=== PATIENT | male | born 1950 | race Caucasian/White ===

== ENCOUNTER → 2017-09-24 | Outpatient (CLI) | payer MEDICARE ==
[~2017-09-24] MED LIST: 1-ME1LIQ PO; AMLO10TA2 PO; ASPI81TA23 PO; HYDR-2768 PO; HYDR25TA5 PO; LISI-360 PO; LISI30TA4 PO; LORTA5 PO; PRAV40 PO; PRAV40TA2 PO; SPIRCAP INH; TAMS0.4C4 PO; UMEC1INH INH
[2017-09-24 10:20] LABS: AUTOMATED NEUTROPHIL # 4.1 TH/MM3 (1.8-7.7); BASOPHIL # 0.1 TH/MM3 (0-0.2); BASOPHIL % 0.9 % (0.0-2.0); EOSINOPHIL # 0.3 TH/MM3 (0-0.4); EOSINOPHIL % 4.3 % (0.0-4.0); HEMATOCRIT 45.3 % (39.0-51.0); HEMOGLOBIN 15.6 GM/DL (13.0-17.0); LYMPHOCYTE # 1.9 TH/MM3 (1.0-4.8); MEAN CELL VOLUME 87.9 FL (80.0-100.0); MEAN CORPUSCULAR HEMOGLOBIN 30.2 PG (27.0-34.0); MEAN CORPUSCULAR HGB CONC 34.3 % (32.0-36.0); MEAN PLATELET VOLUME 8.8 FL (7.0-11.0); MONOCYTE # 0.8 TH/MM3 (0-0.9); NEUT % 57.8 % (16.0-70.0); PLATELET COUNT 195 TH/MM3 (150-450); RED BLOOD COUNT 5.15 MIL/MM3 (4.50-5.90); RED CELL DISTRIBUTION WIDTH 13.1 % (11.6-17.2); WHITE BLOOD COUNT 7.2 TH/MM3 (4.0-11.0)
[2017-09-24 10:29] LABS: PROTHROMBIN TIME - PATIENT 9.9 SEC (9.8-11.6)
[2017-09-24 10:50] LABS: ALBUMIN 4.1 GM/DL (3.4-5.0); ALT (GPT) 34 U/L (12-78); AST (GOT) 17 U/L (15-37); BICARBONATE 30.4 MEQ/L (21.0-32.0); BLOOD UREA NITROGEN 16 MG/DL (7-18); CALCIUM 9.5 MG/DL (8.5-10.1); CHLORIDE 103 MEQ/L (98-107); CREATININE 0.98 MG/DL (0.60-1.30); GLOMERULAR FILTRATION RATE 76 ML/MIN (>89); GLUCOSE,FASTING 118 MG/DL (74-99); SODIUM (NA) 142 MEQ/L (136-145)
[2017-09-24 10:53] LABS: ALKALINE PHOSPHATASE 66 U/L (45-117); TOTAL BILIRUBIN ADULT 0.8 MG/DL (0.2-1.0); TOTAL PROTEIN 7.4 GM/DL (6.4-8.2)
[2017-09-24 11:15] LABS: BILIRUBIN, URINE NEG (NEG); BLOOD, URINE NEG (NEG); GLUCOSE,URINE NEG (NEG); KETONE, URINE NEG (NEG); NITRITE,URINE NEG (NEG); SQUAMOUS EPITHELIAL CELL URINE <1 /hpf (0-5); URINE COLOR YELLOW (YELLW/STRAW); URINE LEUKOCYTE ESTERASE NEG (NEG)
--- NOTE | 2017-09-24 12:14 | RADRPT ---
EXAM DATE/TIME: 09/24/2017 10:37 [place] COMPARISON: No previous studies available for comparison. INDICATIONS : Evaluate for pneumonia, pneumothorax, or communicable disease. Pre op for transverse colecotomy. MEDICAL HISTORY : Hypertension. Chronic obstructive pulmonary disease. SURGICAL HISTORY : None. ENCOUNTER: Initial ACUITY: 1 day PAIN SCORE: 0/10 LOCATION: Bilateral chest FINDINGS: PA and lateral views of the chest demonstrate the lungs to be symmetrically aerated without evidence of mass, infiltrate or effusion. The cardiomediastinal contours are unremarkable. Osseous structure s are intact. CONCLUSION: No acute disease. Curry Liang MD FACR on September 24, 2017 at 12:11 Board Certified Radiologist. This report was verified electronically.
--- NOTE | 2017-09-24 20:02 | EKG ---
Date Performed: 09/24/2017 Time Performed: 10:17:23 PTAGE: 67 years EKG: Sinus rhythm MODERATE INTRAVENTRICULAR CONDUCTION DELAY BORDERLINE ECG NO PREVIOUS TRACING DOCTOR: Uli Vilchis Interpretating Date/Time 09/24/2017 20:01:54
== END ==
LOC: CPRE 09:26
PROVIDERS: ATTEND Colon & Rectal Surgery
DX: Z01.810 Encounter for preprocedural cardiovascular examination (principal); Z01.812 Encounter for preprocedural laboratory examination; Z01.811 Encounter for preprocedural respiratory examination; R94.31 Abnormal electrocardiogram [ECG] [EKG]; D12.3 Benign neoplasm of transverse colon; Z79.01 Long term (current) use of anticoagulants
CPT/HCPCS: 36415; 71046; 80053; 81001; 82378; 85025; 85610; 85730; 93005

== ENCOUNTER 2017-10-01 10:04 | Inpatient (IN) | payer MEDICARE ==
[~2017-10-01] VITALS: Ht 188 cm; Wt 106.5 kg
[~2017-10-01 10:04] MED LIST changes: -1-ME1LIQ PO; -HYDR-2768 PO; -LISI-360 PO; -LORTA5 PO; -PRAV40 PO; -SPIRCAP INH
[2017-10-01] MEDS ORDERED: BUPIVACAINE HCL PF 0.5% 30 ML VIAL ONE ×5 (10:50→12:32)
[2017-10-01] MEDS ORDERED: LIDOCAINE 1%/EPINEPHrine 1:100,000 SOLN 30 ML VIAL ONE (10:50)
[2017-10-01] MEDS ORDERED: INSULIN HUMAN REGULAR 1,000 UNITS/10 ML VIAL SQ PRN (11:00)
[2017-10-01] MEDS ORDERED: SODIUM CHLORID 0.9% 500 ML IV PRN (11:00)
[2017-10-01] MEDS ORDERED: CHLORHEXIDINE GLUCONATE 2 % 1 PACK (2 CLOTHS) TOPICAL PRN (11:00)
[2017-10-01] MEDS ORDERED: ceFAZolin 1,000 MG/NS 100 ML IV SCH ×2 (11:00)
[2017-10-01] MEDS ORDERED: DEXT 5%-NACL 0.9% 1000 ML INJ 1,000 ML IV SCH (11:00)
[2017-10-01] MEDS ORDERED: LACTATED RINGER'S 1000 ML IV PRN (11:00)
[2017-10-01] MEDS ORDERED: POVIDONE IODINE 5% (ANTISEPSIS KIT) 4 APPLICATIONS EACH NARE PRN (11:00)
[2017-10-01] MEDS ORDERED: METOPROLOL TARTRATE 25 MG TAB PO PRN (11:00)
[2017-10-01] MEDS ORDERED: ALVIMOPAN 12 MG CAPSULE - On Call PO SCH (11:00)
[2017-10-01] MEDS ORDERED: METRONIDAZOLE 500 MG/100 ML ISONTONIC SOLN IV SCH (11:00)
[2017-10-01] MEDS ORDERED: ZANT150T2 PO (11:15)
--- NOTE | 2017-10-01 11:29 | PD.HP.UP ---
H&P Update Note The Pre-Admit History and Physical Examination regarding the above named patient was reviewed (including, but not limited to, vital signs, heart, lungs, co-morbid conditions), and upon re-examination it is noted that: the patient's condition has not significantly changed since the last examination. Harish Valdez MD Oct 01, 2017 11:29
[2017-10-01] MEDS ORDERED: ACETAMINOPHEN 1000 MG/100 ML 100 ML IV ONE (11:35)
[2017-10-01] MEDS ORDERED: HYDROmorphone HCL PF 2 MG/ML VIAL ONE (11:37)
[2017-10-01] MEDS ORDERED: METR250 PO (11:38)
[2017-10-01] MEDS ORDERED: NORMOSOL R INJ 2,000 ML IV ONE (12:00)
[2017-10-01] MEDS ORDERED: VECURONIUM BROMIDE 20 MG VIAL IV ONE (12:00)
[2017-10-01] MEDS ORDERED: NEOSTIGMINE 5 MG/5 ML SYRINGE IV PUSH ONE (12:00)
[2017-10-01] MEDS ORDERED: LIDOCAINE HCL 1% PF 5 ML SYRINGE OTHER ONE (12:00)
[2017-10-01] MEDS ORDERED: ROCURONIUM INJ 50 MG/5 ML SYRINGE IV PUSH ONE (12:00)
[2017-10-01] MEDS ORDERED: PHENYLEPH/NS 1000 MCG/10 ML SYR IV ONE (12:00)
[2017-10-01] MEDS ORDERED: GLYCOPYRROLATE 1 MG/5 ML SYRINGE IV PUSH ONE (12:00)
[2017-10-01] MEDS ORDERED: DO NOT ADM ANY ANTICOAGULANT DRUGS PRN (14:09)
[2017-10-01] MEDS ORDERED: BENZOCAINE 6 MG/MENTHOL 10 MG LOZENGE BUCCAL PRN (14:15)
[2017-10-01] MEDS ORDERED: ENALAPRILAT 2.5 MG/2 ML VIAL IV PUSH PRN (14:15)
[2017-10-01] MEDS ORDERED: NALOXONE HCL 0.4 MG/ML AMP IV PUSH PRN (14:15)
[2017-10-01] MEDS ORDERED: BUPIVACAINE HCL PF 0.5% 30 ML VIAL NB SCH (14:15)
[2017-10-01] MEDS: PCA - TOTAL MG MORPHINE DELIVERED PER SHIFT SCH (14:15)
[2017-10-01] MEDS ORDERED: ACETAMINOPHEN/HYDROcodone 325 MG/5 MG TAB PO PRN (14:15)
[2017-10-01] MEDS ORDERED: ENALAPRILAT 1.25 MG/ML VIAL IV PUSH PRN (14:15)
[2017-10-01] MEDS ORDERED: POTASSIUM CHLOR 20 MEQ PREMIX 100 ML IV PRN (14:15)
[2017-10-01] MEDS ORDERED: ACETAMINOPHEN 325 MG TAB PO PRN (14:15)
[2017-10-01] MEDS ORDERED: ONDANSETRON HCL 4 MG/2 ML VIAL IV PUSH PRN (14:15)
[2017-10-01] MEDS ORDERED: KETOROLAC TROMETHAMINE 30 MG/ML (IVP) VIAL IVP PRN (14:15)
[2017-10-01] MEDS ORDERED: Post-op Orders (for Pharmacy) XX ONE (14:15)
[2017-10-01] MEDS ORDERED: POTASSIUM CHLOR 40 MEQ PREMIX 100 ML IV PRN (14:15)
[2017-10-01] MEDS ORDERED: MIDAZOLAM HCL 2 MG/2 ML VIAL ONE (14:16)
[2017-10-01] MEDS ORDERED: KETOROLAC TROMETHAMINE 30 MG/ML (IVP) VIAL IV PUSH ONE (14:33)
[2017-10-01] MEDS ORDERED: ONDANSETRON HCL 4 MG/2 ML VIAL IV PUSH ONE (14:33)
[2017-10-01] MEDS ORDERED: PROPOFOL 200 MG/20 ML AMP IV ONE (14:33)
[2017-10-01] MEDS ORDERED: DEXAMETHASONE SOD PHOS 4 MG/ML VIAL IV ONE (14:33)
[2017-10-01] MEDS ORDERED: STERILE WATER FOR INJECTION 20 ML VIAL IV ONE (14:33)
[2017-10-01] MEDS: D5-NS + KCL 20 MEQ INJ 1,000 ML IV SCH ×2 (15:00→22:42)
[2017-10-01] MEDS: MORPHINE SULFATE 30 MG/30 ML PCA IV SCH (15:15)
[2017-10-01] MEDS ORDERED: PILL SPLITTER OTHER PRN (15:15)
[2017-10-01 20:00] VITALS: BP 152/76; PULSE 76; RESP 16; TEMP 97.5; O2SAT 95
[2017-10-01] MEDS: metroNIDAZOLE 500 MG INJ 100 ML IV SCH (22:39)
[2017-10-01] MEDS: PRAVASTATIN SOD 40 MG TAB PO SCH (22:40)
[2017-10-01] MEDS: METOCLOPRAMIDE HCL 10 MG/2 ML VIAL IVS SCH (22:40)
[2017-10-01] MEDS: TAMSULOSIN HCL 0.4 MG CAP PO SCH (22:41)
[2017-10-02] VITALS (17 sets, daily range): BP systolic 115–155; BP diastolic 56–81; PULSE 65–80; RESP 16–18; TEMP 97.5–99.7; O2SAT 90–94
[2017-10-02] MEDS: metroNIDAZOLE 500 MG INJ 100 ML IV SCH ×2 (04:13→12:36)
[2017-10-02] MEDS: D5-NS + KCL 20 MEQ INJ 1,000 ML IV SCH ×3 (04:13→18:38)
[2017-10-02 05:14] LABS: BASOPHIL % 0.2 % (0.0-2.0); EOSINOPHIL % 0.1 % (0.0-4.0); HEMATOCRIT 42.3 % (39.0-51.0); HEMOGLOBIN 14.3 GM/DL (13.0-17.0); LYMPH % 7.4 % (9.0-44.0); MEAN CELL VOLUME 88.3 FL (80.0-100.0); MEAN CORPUSCULAR HEMOGLOBIN 29.9 PG (27.0-34.0); MEAN CORPUSCULAR HGB CONC 33.9 % (32.0-36.0); MEAN PLATELET VOLUME 9.3 FL (7.0-11.0); MONO % 8.4 % (0.0-8.0); MONOCYTE # 1.1 TH/MM3 (0-0.9); NEUT % 83.9 % (16.0-70.0); PLATELET COUNT 181 TH/MM3 (150-450); RED BLOOD COUNT 4.79 MIL/MM3 (4.50-5.90); RED CELL DISTRIBUTION WIDTH 13.3 % (11.6-17.2); WHITE BLOOD COUNT 13.1 TH/MM3 (4.0-11.0)
[2017-10-02 05:32] LABS: BICARBONATE 26.7 MEQ/L (21.0-32.0); CALCIUM 7.9 MG/DL (8.5-10.1); CREATININE 0.87 MG/DL (0.60-1.30)
--- NOTE | 2017-10-02 07:28 | HHI.PR ---
Subjective Remarks C/R Surg POD #1 afebrile, VSS UO good Objective - Vital Signs Date Time Temp Pulse Resp B/P (MAP) Pulse Ox O2 Delivery O2 Flow Rate FiO2 10/02/17 03:00 98.1 66 16 120/56 (77) 93 10/01/17 19:00 Room Air 10/01/17 16:00 2 Result Diagram: 10/02/17 0353 10/02/17 0353 Objective Remarks PE alert Abd - soft, wound dry, min tympany A/P Assessment and Plan Imp: stable post-op OOB decr IVF tx to floor Harish Valdez MD Oct 02, 2017 07:28
[2017-10-02] MEDS: LISINOPRIL 20 MG TAB PO SCH (09:00)
[2017-10-02] MEDS: PANTOPRAZOLE SODIUM 40 MG VIAL IVP SCH (09:00)
[2017-10-02] MEDS: PANTOPRAZOLE SOD 40 MG DELAYED RELEASE TAB PO SCH (09:00)
[2017-10-02] MEDS ORDERED: INCRUSE ELLIPTA INH SCH (09:00)
[2017-10-02] MEDS: METOCLOPRAMIDE HCL 10 MG/2 ML VIAL IVS SCH ×2 (09:01→21:52)
[2017-10-02] MEDS: ALVIMOPAN 12 MG CAPSULE - Post-op dosing PO SCH ×2 (09:01→21:52)
[2017-10-02] MEDS: MORPHINE SULFATE 30 MG/30 ML PCA IV SCH (09:08)
[2017-10-02] MEDS: ACETAMINOPHEN/HYDROcodone 325 MG/5 MG TAB PO PRN ×2 (12:40→21:51)
[2017-10-02] MEDS: PCA - TOTAL MG MORPHINE DELIVERED PER SHIFT SCH ×2 (14:00→21:53)
[2017-10-02] MEDS ORDERED: ALVIMOPAN 12 MG CAPSULE PO SCH (21:00)
[2017-10-02] MEDS: PRAVASTATIN SOD 40 MG TAB PO SCH (21:52)
[2017-10-02] MEDS: TAMSULOSIN HCL 0.4 MG CAP PO SCH (21:53)
[2017-10-03] VITALS: BP 154/75; PULSE 76; RESP 18; TEMP 98.3; O2SAT 91
[2017-10-03] MEDS: D5-NS + KCL 20 MEQ INJ 1,000 ML IV SCH ×2 (01:40→13:55)
[2017-10-03] MEDS: PCA - TOTAL MG MORPHINE DELIVERED PER SHIFT SCH ×3 (05:10→20:43)
[2017-10-03 07:47] LABS: AUTOMATED NEUTROPHIL # 11.2 TH/MM3 (1.8-7.7); BASOPHIL # 0.1 TH/MM3 (0-0.2); BASOPHIL % 0.5 % (0.0-2.0); EOSINOPHIL # 0.1 TH/MM3 (0-0.4); EOSINOPHIL % 0.6 % (0.0-4.0); HEMATOCRIT 42.8 % (39.0-51.0); HEMOGLOBIN 14.3 GM/DL (13.0-17.0); LYMPH % 10.6 % (9.0-44.0); LYMPHOCYTE # 1.5 TH/MM3 (1.0-4.8); MEAN CELL VOLUME 89.5 FL (80.0-100.0); MEAN CORPUSCULAR HEMOGLOBIN 29.9 PG (27.0-34.0); MEAN CORPUSCULAR HGB CONC 33.5 % (32.0-36.0); MEAN PLATELET VOLUME 9.5 FL (7.0-11.0); MONO % 9.6 % (0.0-8.0); MONOCYTE # 1.4 TH/MM3 (0-0.9); NEUT % 78.7 % (16.0-70.0); PLATELET COUNT 169 TH/MM3 (150-450); RED BLOOD COUNT 4.78 MIL/MM3 (4.50-5.90); RED CELL DISTRIBUTION WIDTH 13.5 % (11.6-17.2); WHITE BLOOD COUNT 14.2 TH/MM3 (4.0-11.0)
[2017-10-03 08:00] VITALS: BP 161/76; PULSE 78; RESP 20; TEMP 98.5; O2SAT 93
[2017-10-03 08:29] LABS: CALCIUM 8.1 MG/DL (8.5-10.1); CREATININE 0.77 MG/DL (0.60-1.30)
[2017-10-03] MEDS: ALVIMOPAN 12 MG CAPSULE - Post-op dosing PO SCH ×2 (09:10→20:42)
[2017-10-03] MEDS: PANTOPRAZOLE SOD 40 MG DELAYED RELEASE TAB PO SCH (09:10)
[2017-10-03] MEDS: METOCLOPRAMIDE HCL 10 MG/2 ML VIAL IVS SCH ×2 (09:11→20:42)
[2017-10-03] MEDS: LISINOPRIL 20 MG TAB PO SCH (09:11)
[2017-10-03] MEDS: PANTOPRAZOLE SODIUM 40 MG VIAL IVP SCH (09:12)
[2017-10-03 12:00] VITALS: BP 142/76; PULSE 79; RESP 18; TEMP 98; O2SAT 94
--- NOTE | 2017-10-03 12:33 | HHI.PR ---
Subjective Remarks C/R Surg POD #2 afebrile, VSS UO good +flatus Objective - Vital Signs Date Time Temp Pulse Resp B/P (MAP) Pulse Ox O2 Delivery O2 Flow Rate FiO2 10/03/17 12:00 98.0 79 18 142/76 (98) 94 10/01/17 19:00 Room Air 10/01/17 16:00 2 Result Diagram: 10/03/17 0636 10/03/17 0636 Objective Remarks PE alert Abd - soft, wound dry, min tympany, ON-Q dc'd A/P Assessment and Plan Imp: OOB decr IVF adv Harish Camacho MD Oct 03, 2017 12:33
[2017-10-03] MEDS: MORPHINE SULFATE 30 MG/30 ML PCA IV SCH (15:59)
[2017-10-03 16:00] VITALS: BP 142/78; PULSE 73; RESP 16; TEMP 98.4; O2SAT 94
[2017-10-03 20:00] VITALS: BP 154/76; PULSE 87; RESP 18; TEMP 98.4; O2SAT 94
[2017-10-03] MEDS: TAMSULOSIN HCL 0.4 MG CAP PO SCH (20:42)
[2017-10-03] MEDS: PRAVASTATIN SOD 40 MG TAB PO SCH (20:42)
[2017-10-03 20:54] VITALS: RESP 18
[2017-10-04] VITALS: BP 143/72; PULSE 92; RESP 16; TEMP 98.4; O2SAT 93
[2017-10-04 04:00] VITALS: BP 127/70; PULSE 70; RESP 18; TEMP 98; O2SAT 92
[2017-10-04] MEDS: PCA - TOTAL MG MORPHINE DELIVERED PER SHIFT SCH ×2 (05:04→13:38)
[2017-10-04] MEDS: D5-NS + KCL 20 MEQ INJ 1,000 ML IV SCH (05:05)
[2017-10-04 08:00] VITALS: BP 148/74; PULSE 79; RESP 18; TEMP 98.4; O2SAT 93
[2017-10-04] MEDS: PANTOPRAZOLE SODIUM 40 MG VIAL IVP SCH (09:00)
[2017-10-04] MEDS: PANTOPRAZOLE SOD 40 MG DELAYED RELEASE TAB PO SCH (09:29)
[2017-10-04] MEDS: LISINOPRIL 20 MG TAB PO SCH (09:30)
[2017-10-04] MEDS: ALVIMOPAN 12 MG CAPSULE - Post-op dosing PO SCH (09:31)
[2017-10-04] MEDS: METOCLOPRAMIDE HCL 10 MG/2 ML VIAL IVS SCH (09:32)
[2017-10-04 12:00] VITALS: BP 133/71; PULSE 76; RESP 17; TEMP 97.8; O2SAT 93
--- NOTE | 2017-10-04 12:25 | HHI.PR ---
Subjective Remarks POD#3 s/p colon resection comfortable, wants to go home Objective Vital Signs Date Time Temp Pulse Resp B/P (MAP) Pulse Ox O2 Delivery O2 Flow Rate FiO2 10/04/17 08:00 98.4 79 18 148/74 (98) 93 10/04/17 05:04 16 10/04/17 04:00 98.0 70 18 127/70 (89) 92 10/04/17 00:00 98.4 92 16 143/72 (95) 93 10/03/17 20:54 18 10/03/17 20:43 18 10/03/17 20:00 98.4 87 18 154/76 (102) 94 10/03/17 16:00 98.4 73 16 142/78 (99) 94 10/03/17 14:00 16 I/O 10/03/17 10/03/17 10/03/17 10/04/17 10/04/17 10/04/17 07:00 15:00 23:00 07:00 15:00 23:00 Intake Total 1220 ml 2000 ml 1410 ml Output Total 1500 ml 450 ml Balance 1220 ml 500 ml 960 ml Intake Oral 2000 ml 960 ml IV Total 1220 ml 450 ml Output Urine Total 1500 ml 450 ml # Voids 3 # Bowel Movements 1 1 Result Diagram: 10/03/17 0636 10/03/17 0636 Objective Remarks Abdomen soft, nondistended, tender Wound clean Assessment and Plan Assessment and Plan Doing well Home today Followup Friday per Elva Kurtz MD Oct 04, 2017 12:25
[2017-10-04] MEDS ORDERED: HYDR-3516 PO (12:27)
[2017-10-04 13:38] VITALS: RESP 17
--- NOTE | 2017-10-06 07:50 | MP ---
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 PROCEDURE: Exploratory laparotomy with lysis of adhesions and resection of ileocolostomy and transverse colon. POSTOPERATIVE DIAGNOSES: 1. Carcinoma of the transverse colon. 2. History of carcinoma of the colon. SURGEON: Harish Valdez MD PANTOGRAPH MACHINE SET UP OPERATOR: David Fulton MD DESCRIPTION OF PROCEDURE: The patient was placed in the supine position. After adequate general anesthesia, his legs were placed in the universal stirrups and supported appropriately. The abdomen and perineum were then prepped with Betadine solution and draped in the usual sterile fashion. With Dr. Fulton's assistance, the previous midline incision was opened, extending it over to the left side of the abdomen. Upon entering the abdominal cavity, adhesions to the parietal peritoneum were taken down. There were relatively few adhesions throughout the abdomen, and the small bowel was mobilized up out of the pelvis. The ileal colostomy was noted to be pretty normal. Palpation revealed a small tumor in the left side of the transverse colon. They do not appear to be any serosal puckering. Distal colon was palpated very carefully and felt to be pretty unremarkable except for diverticulosis. The small bowel was run to the ligament of Treitz to ileocecal valve and felt to be normal. Stomach and duodenum were normal. Liver and gallbladder were pretty unremarkable, except for some cysts in the liver. First, the terminal ileum and remaining right transverse colon were mobilized off the duodenum, entering the lesser sac and recreating the lesser sac. The gastrocolic omentum was then taken off the remainder of the transverse colon, again, getting into the lesser sac appropriately. Bowel was mobilized up towards the splenic flexure, and there appeared to be a sufficient distal margin away from the tumor to make mobilization of the left colon unnecessary. After full mobilization, the bowel was divided in the terminal ileum using the THOMAS stapling device. The intervening mesentery including the middle colic vessels were taken between Kellys obtaining hemostasis with Vicryl ties. The distal resection margin was in the splenic flexure region leaving the left colic vessel intact. Specimen was removed. Bowel continuity was then restored by firing of the GI stapler across the antimesenteric ends of the bowel, closing enterotomy with a TA 60 stapler. The mesenteric defect closed with a running Vicryl suture and a 3-0 Vicryl crotch suture was placed as well. The bowel replaced into the abdominal cavity. The abdomen was irrigated copiously with normal saline. Adequate hemostasis achieved. Transverse incision was closed anatomically in 2 layers using #1 PDS sutures to reapproximate the respective fascial layers. On-Q catheters were placed into the rectus sheaths on both sides and brought up through subcutaneous tunnels above the transverse incision. Subcutaneous tissues irrigated copiously and the skin closed with a running subcuticular Vicryl suture. Wound area washed with normal saline and dried, sterile dressing of Telfa and gauze applied. The patient tolerated the procedure quite well and was brought to the recovery room in stable condition. Sponge and needle counts were correct at the end of the procedure. Harish Valdez MD AHR/SB , 03:07 PM , 03:29 PM
== END 2017-10-04 14:34 | disposition home or self-care (01) | DRG 331 ==
LOC: HSDI 10:04 → HCPC 21:19 → N07A 10-02 22:58
PROVIDERS: ADMIT Colon & Rectal Surgery; ATTEND Colon & Rectal Surgery
PROC: 0DTL0ZZ Resection of Transverse Colon, Open Approach (ICD-10-PCS; principal; 2017-10-01 11:46)
DX: C18.4 Malignant neoplasm of transverse colon (principal); I10 Essential (primary) hypertension; K57.30 Diverticulosis of large intestine without perforation or abscess without bleeding; E78.5 Hyperlipidemia, unspecified; N40.0 Benign prostatic hyperplasia without lower urinary tract symptoms; F12.90 Cannabis use, unspecified, uncomplicated; Z43.3 Encounter for attention to colostomy; Z85.841 Personal history of malignant neoplasm of brain; Z85.118 Personal history of other malignant neoplasm of bronchus and lung; Z86.010 Personal history of colon polyps; Z87.891 Personal history of nicotine dependence; Z88.0 Allergy status to penicillin
CPT/HCPCS: 80048; 85025; 86850; 86900; 86901; 88307; 88309; 94150; C9113; J0131; J0690; J1100; J1170; J1885; J2250; J2270; J2370; J2405; J2710; J2765; J3010; J3480; J7120